=== PATIENT | male | born 1960 ===

== ENCOUNTER 2017-06-12 02:56 | Inpatient (IN) | payer OTHER ==
[~2017-06-12] VITALS: Ht 180.3 cm; Wt 99.8 kg
--- NOTE | ~2017-06-12 | WRIGHTHP ---
[place], [place] PATIENT HISTORY AND PHYSICAL EXAM NAME: NAYELI GATES UNIT #: [id number] ROOM: 309 DOCTOR: SANDRA DOUGLASS MD BIRTHDATE: [birth year] DOS: 06/13/2017 INITIAL PSYCHIATRIC EVALUATION CHIEF COMPLAINT: "I was gonna to kill myself or all those other people at that place, I can't stand it, I need to find another place." HISTORY OF PRESENT ILLNESS: This is a 56-year-old white male who was sent here from [facility] in the [facility]. The patient initially presented to the Emergency Room at [facility] and was sent here on an involuntary basis due to significant suicidal and homicidal ideation. The patient apparently has a lengthy history of schizoaffective disorder and has been having increased depression with mood swings and irritability. He made threats that he was going to find a way to kill himself or the people at [facility] if he did not get any help. He was sent here now to rule out organic factors, to stabilize on medication, to engage in individual and boothe milieu activity with the plan then to return to the least restrictive environment when psychiatrically stable. PAST MEDICAL HISTORY: Remarkable for previous psychiatric admission here in 2014 for similar psychotic break. MENTAL STATUS: Upon admission, the patient is alert and oriented x 3. Mood is depressed, anxious overtones. There is the presence of some grandiosity as well as the presence of delusions and some paranoia. He was not wanting to talk to me with the door open and would only talk to me in a whisper when people passed by. His memory seems to be intact. DIAGNOSIS: Schizoaffective disorder. PLAN: His ammonia level is slightly elevated. This could be because of the Depakote alone, so I will discontinue it. It has not been effective anyway. I will go ahead and augment his Zyprexa at this point with Vraylar, may look to utilize a different antipsychotic as well. We will discuss the case with Tandem Operator to determine if placement back to [facility] is warranted or alternative placement is needed. [place], [place] PATIENT HISTORY AND PHYSICAL EXAM NAME: NAYELI GATES UNIT #: [id number] ROOM: 309 DOCTOR: SANDRA DOUGLASS MD BIRTHDATE: [birth year] SANDRA DOUGLASS MD CM:HISPHYS:PATIENT HISTORY AND PHYSICAL EXAMINATION 1001 SANDRA DOUGLASS MD 06/13/17 0959 interface
--- NOTE | ~2017-06-12 | PR ---
[place], [place] PROGRESS NOTE NAME: NAYELI GATES UNIT #: [id number] ROOM: 312 DOCTOR: SANDRA DOUGLASS MD BIRTHDATE: [birth year] DOS: 06/20/2017 CHIEF COMPLAINT: "Oh, yeah, I will sign in if that is all I have to do." SUMMARY OF THE VISIT: The patient was interviewed on multiple occasions, first, but prior to the court hearing regarding further length of stay. I sat with him and discussed his options regarding signing in. He was somewhat fearful of what the court hearing was and when I explained to him that he had the option to sign in voluntarily if he wanted, he nodded in approval. He is much more calm and goal directed this morning and was able to carry on a reasonable conversation with me. Later, the patient did attend his court hearing with the restaurant hostess and the contract attorney present and clearly voiced a desire to sign in which he did. He at times did get derailed and was fragmented, but overall there has been a steady trend in improvement. Later in the morning, the patient did have a very demonstrative period of time where he was yelling at the top of his lungs about getting his medicine for his legs. He is somewhat preoccupied with his bilateral ankle swelling, which seems to be mostly dependent edema because he is pacing and on his feet so much. He did redirect after the nurses intervened. MENTAL STATUS: He is alert and oriented. Mood now is strongly trending towards euthymia and affect is much more appropriate. His conversation is more goal directed, but at times he does be real and becomes fragmented and at times he jumbled his words and is hard to understand, but there is a consistent trend toward improvement. There is some mild paranoia present, but he is able to redirect himself on this. Memory for the most part is intact. PLAN: At this point, I am going to strive to achieve monotherapy. I will lower the Zyprexa from 20 mg at bedtime, down to 15 with a plan to ultimately discontinue it. I will increase the Clozaril to 50 mg twice daily and 200 mg at bedtime. We will continue to engage in individual and boothe milieu activity with the ultimate plan to return to the least restrictive environment when psychiatrically stable. SANDRA DOUGLASS MD CM:YESENIA 1 [id number] SANDRA DOUGLASS MD 06/20/17 2318 interface
--- NOTE | ~2017-06-12 | PR ---
[place], [place] PROGRESS NOTE [id number] UN[facility] #: [id number] ROOM: 312 DOCTOR: CADE PENA BIRTHDATE: [birth year] DOS: 06/19/2017 CHIEF COMPLAINT: The patient was sleeping soundly. SUMMARY OF VISIT: I assessed the patient in his room where he was sleeping soundly. Prior to entering the room, I did discuss his situation with the nurses. He was quite manic yesterday, pressured speech, pacing, yelling, etc. He did receive throughout the course of the last 24 hours 3 p.r.n. Valiums. Last night was the first night he slept successfully almost 6-7 hours consecutively. So at this point, I do not want him. My hope was that eventually the medications will kick in. He would have a couple of days where he just slept, and then kind of recalibrated. MENTAL STATUS: Again, limited. I did not even attempt to wake him since he is having some success with sleep at this time, most of my assessment is based on conversations with nursing and the boothe milieu staff. PLAN: Lets go ahead and keep the medications where they are. Use the p.r.n. Valium, which seems to be effective. Even if the next 24 hours again we kind of have to sedate him a little bit just to help him get some sleep, so he can kind of reset his clock. His Clozaril and trazodone were increased on Tuesday and again yesterday he received a total of 3 Valiums throughout 24-hour day and this seems to be working. We will continue as is and reassessed tomorrow. ZULEIMA PENA CNP CM:PNTRANS [id number] 0 CADE PENA 06/20/17139 interface
--- NOTE | ~2017-06-12 | PR ---
[place], [place] PROGRESS NOTE NAME: NAYELI GATES UNIT #: [id number] ROOM: 312 DOCTOR: SANDRA DOUGLASS MD BIRTHDATE: [birth year] DOS: 06/22/2017 CHIEF COMPLAINT: "I am doing better. I do not want to go back to that [facility]." SUMMARY OF THE VISIT: The patient was interviewed in the group therapy room. He engaged readily in conversation and was much more goal oriented in his speaking. He denied any type of medication side effects and does report that he is feeling better day by day and is sleeping better with the current medication regimen. MENTAL STATUS: He is alert and oriented. Mood does seem to be strongly trending towards euthymia. Affect is much more appropriate. He still has a tendency to derail in the middle of a conversation, but he self-redirects and ultimately comes back to the topic at hand. There are no overt auditory or visual hallucinations noted. No voiced delusions. There does not seem to be the prominent paranoia that was so prevalent earlier in his hospital stay. He convincingly denies any medication side effects. Memory for the most part is intact. PLAN: At this point, I will renew his p.r.n. Valium in case he requires any p.r.n. intervention. I will discontinue his Cogentin at this point since the Zyprexa has been discontinued as has the chlorpromazine. I will maintain him only on the Clozaril and trazodone at this point. I will consider lowering the trazodone if at all possible. We will look towards possible discharge soon, whether this is to [facility] or to an alternative placement remains unclear. We will discharge when psychiatrically stable. SANDRA DOUGLASS MD CM:PNTRANS 0 SANDRA DOUGLASS MD 06/22/1740 interface
--- NOTE | ~2017-06-12 | DS ---
[place], [place] DISCHARGE SUMMARY NAME: NAYELI GATES UNIT #: [id number] ROOM: 312 DOCTOR: SANDRA DOUGLASS MD BIRTHDATE: [birth year] DOS: 06/24/2017 CHIEF COMPLAINT: "I was going to kill myself or all those other people at that place, I can't stand it, I need to find another place to live." HISTORY OF PRESENT ILLNESS: This is a 56-year-old white male who was sent here from [facility], a custodial in the [facility]. He initially presented to the Emergency Room at [facility] and was sent here on an involuntary basis due to significant suicidal and homicidal ideation. The patient has a lengthy history of schizoaffective disorder and has been having increased mood swings, irritability and gross psychosis. He has made multiple threats to kill himself or the other residents at [facility]. He has not been sleeping well. He has not been attending to his ADLs and he has been very volatile and agitated. He was admitted now to rule out organic factors and to attempt to stabilize on medication. SUMMARY OF HOSPITAL COURSE: The patient was initially maintained on his Zyprexa dose; however, the Zyprexa dose was gradually increased to 40 mg a day. At first, he was augmented with Vraylar, but this did not seem to impact positively on his psychotic symptoms and he continued to be grossly psychotic and manic. He was very demonstrative and very paranoid. He was so disorganized that he would often talk in word salad. Eventually, the Vraylar was discontinued and Thorazine was utilized, but unsuccessfully. Despite having a fairly hefty dose of Thorazine along with a very hefty dose of the Zyprexa, he maintained gross psychosis and extreme mood lability with multiple threats to others. Eventually, the Thorazine was discontinued and he was started on Clozaril. With the Clozaril, he had an almost instantaneous improvement. After going approximately 3-4 days without any sleep, he actually slept 4 hours the first night on the Clozaril. Eventually trazodone was added at 150 mg at bedtime and then increased to 300 mg at bedtime. Clozaril was gradually increased to its maximum dose of 50 mg twice daily and 300 mg at bedtime and the Zyprexa was gradually discontinued at that point in time. With the combination of the trazodone and the Clozaril, his psychosis completely broke. He was able to engage in normal conversation and was able to interact well with other residents on the unit as well as staff. The suicidal and homicidal thoughts dissipated and he was voicing positive plans about returning to [facility] and even made an effort to look into alternative placements at [facility] as well as [facility]. He convincingly denied any medication side effects. He was not noticing any somnolence, sedation, extrapyramidal symptoms, or other side effects. He had improved sufficiently by 06/24 to return home at that time. MENTAL STATUS AT DISCHARGE: The patient was alert and oriented. Mood was significantly trending towards euthymia and affect was very appropriate. There was no martin or hypomania. There were no overt auditory or visual hallucinations. No delusions, no paranoia. Short, intermediate, and long-term memory were intact. FINAL DIAGNOSIS: Schizoaffective disorder. [place], [place] DISCHARGE SUMMARY NAME: NAYELI GATES UNIT #: [id number] ROOM: 312 DOCTOR: SANDRA DOUGLASS MD BIRTHDATE: [birth year] PLAN: All of his prescriptions have been E-scribed to [facility] in [place]. He will have followup in the [place] area. SANDRA DOUGLASS MD CM:NANCY [id number] SANDRA DOUGLASS MD 06/24/17 1232 interface
--- NOTE | ~2017-06-12 | CON ---
[place], [place] REPORT OF CONSULTATION [id number] UNIT #: [id number] ROOM: 312 DOCTOR: DARREN AREVALO DPM BIRTHDATE: [birth year] DOS: 06/17/2017 PODIATRY CONSULT. SUBJECTIVE: This patient is seen and is consulted for care of painful nails and the painful calluses on his left foot. He states that his feet are sore with ambulation and activity. PAST MEDICAL HISTORY: Positive for panic disorder, schizophrenia, tobacco abuse, hypertension, hyperlipidemia, obesity. ALLERGIES: BENADRYL and INVEGA. MEDICATIONS: Include trazodone, Clozaril, Zyprexa, Valium, Cogentin, Tenormin, Geodon, Ativan, Procardia. PHYSICAL EXAMINATION: Upon lower extremity physical examination, mild dependent edema is seen. Pedal pulses are mildly decreased. There is some decreased hair growth noted. Skin temperature is cool at the toes. Skin is thin and shiny. Sensation appears grossly intact and symmetrical bilaterally. No paresthesias are seen. Nails 1 through 5 bilaterally are thick, elongated, brittle and dystrophic with subungual debris present. There is thick hyperkeratotic tissue noted sub-second metatarsal head, left foot. Prominent first metatarsal head bunion deformity noted with contracted lesser digits. No ulcerations or open areas seen. No signs of infection. ASSESSMENT: and hammertoe deformity with callus, left foot; onychomycosis 1 through 5 bilaterally with pain. PLAN: Consult was performed. Manual debridement of mycotic nails in length and thickness to the level of the nail bed to reduce hazards such as infection. Discussed about wearing proper shoe gear and proper foot care. Follow up the patient in 9 weeks as an outpatient. Thank you for the opportunity to take part in care of this patient. DARREN AREVALO DPM CM:CONSTR:REPORT OF CONSULTATION 1154 06/17/17 1412 interface
--- NOTE | ~2017-06-12 | PR ---
[place], [place] PROGRESS NOTE NAME: NAYELI GATES UNIT #: [id number] ROOM: 312 DOCTOR: SANDRA DOUGLASS MD BIRTHDATE: [birth year] DOS: 06/15/2017 CHIEF COMPLAINT: "I am not olson." SUMMARY OF THE VISIT: The patient was interviewed as he was walking in the hallway. He again began verbalizing out of the blue comments that he was not olson. However, of note, he was not able to form an entire sentence without being derailed. He is very disjointed in his thinking and is very fragmented. He was exhibiting some significant bradykinesia; however, when I did have him hold his arms out in front of him, there was no significant tremor. MENTAL STATUS: He remains alert and oriented with gaps. Mood is very labile. He remains grossly psychotic and delusional and his thoughts are very disjointed and fragmented. PLAN: I will go ahead and increase his Cogentin from 0.5 mg twice daily to 1 mg twice daily in an effort to offset the extrapyramidal symptoms that we are seeing. I will go ahead and increase the Thorazine from 25 mg 3 times a day to 50 mg 4 times a day in an effort to break his psychosis. It is unclear whether it is the Thorazine or the high dose Zyprexa that is causing him to have the parkinsonian symptoms. I will monitor to see if the Cogentin can offset this. At this point in time; however, his gross psychosis and potential mood lability with the risk of physical aggression is such that I do believe that the risk of physical harm to others outweighs the potential for side effects for him. We will continue to engage him in individual and boothe milieu activity with the plan to return him to the least restrictive environment when stable. SANDRA DOUGLASS MD CM:PNTRANS [id number] SANDRA DOUGLASS MD 06/15/17 1032 interface
--- NOTE | ~2017-06-12 | PR ---
[place], [place] PROGRESS NOTE [id number] UNIT #: [id number] ROOM: 312 DOCTOR: CADE PENA BIRTHDATE: [birth year] DOS: 06/18/2017 CHIEF COMPLAINT: The patient was quite manic. SUMMARY OF VISIT: I attempted to interview and assess the patient in his room and in the dining room. Initially, the nurses brought to my attention that they had to give him a p.r.n. Valium because he was still manic, screaming, and cussing. He definitely was a handful. The patient was mumbling rapid pressured speech. MENTAL STATUS: He is alert and oriented, I think to self. He identified himself when I asked what was his name. I do not know if he knows where he is at, place, little things that I got out of him was that [place] is very congested. He does not like it there, very labile. PLAN: Dr. Jain increased his Clozaril yesterday, increased his trazodone as well, trying to help get him some sleep and break his martin. His CBC came back, his white blood count is 11.5. On the 06/13/2017, it was 11.2, on 06/16/2017, it was 8 and back up to 11.5. At this point in time, I want to see how the Valium affects him and see if it can calm him down a little bit. I do not want to make any significant changes only because the Clozaril and trazodone were increased so much yesterday. I will see how he does over the next 24 hours how much Valium he is needing p.r.n. and that will give me a better idea of where to go and what I can do to try and attempt to break the psychosis. ZULEIMA PENA CNP CM:PNTRANS 37 CADE PENA 06/18/171935 interface
--- NOTE | ~2017-06-12 | PR ---
[place], [place] PROGRESS NOTE NAME: NAYELI GATES UNIT #: [id number] ROOM: 312 DOCTOR: SANDRA DOUGLASS MD BIRTHDATE: [birth year] DOS: 06/17/2017 CHIEF COMPLAINT: "Yes you can come in and so can the student." SUMMARY OF THE VISIT: The patient was interviewed as he sat in the group therapy room eating his breakfast. He had completed 1 tray and requested a second. He did invite me in and also the female student that was with me. He was much calmer than he had been previously. There was no agitation or aggression. There was no being overly demonstrative and of note, he was able to actually carry on a conversation for the most part completing full sentences. Nurses did report that he was able to at least get 3 hours of uninterrupted sleep last night. This morning in addition to the above noted improvements, he is not exhibiting slurred speech or any type of sedation or somnolence. He denies any medication side effects. MENTAL STATUS: He is alert and oriented with some time gaps. Mood does seem to be trending towards euthymia. Affect is more appropriate. There are much less mood lability noted and much less delusional system present. Memory for the most part is intact. PLAN: I will increase his Clozaril to 50 mg twice daily and 100 mg at bedtime. If the improvement continues with the Clozaril, I will consider tapering and discontinuing the Zyprexa, so we can utilize monotherapy. I will increase trazodone from 150 mg at bedtime to 300 mg at bedtime to further aid sleep attempting to have him sleep 6-8 hours to see if this will help further break the martin. I will recheck a CBC with diff on 06/18/2017 and 06/21/2017 to make certain that he is tolerating the Clozaril therapy well. We will attempt to engage in individual and boothe milieu activity with the plan to return to the least restrictive environment when psychiatrically stable. SANDRA DOUGLASS MD CM:PNTRANS [id number] SANDRA DOUGLASS MD 06/17/17 0959 interface
--- NOTE | ~2017-06-12 | CON ---
[place], [place] REPORT OF CONSULTATION NAME: NAYELI GATES UNIT #: [id number] ROOM: 312 DOCTOR: RUDI SHNIE ED.D (GILDARDO) BIRTHDATE: [birth year] DOS: 06/15/2017 HISTORY OF PRESENT ILLNESS: A 56-year-old male referred by Dr. Jain for competency evaluation. At the present time, this patient is on the [facility] Unit here at [facility]. He states he is and his is here in the facility with him, which is obviously not correct. His psychiatric history is pertinent for schizoaffective disorder. He is presently on Procardia, Cogentin, Thorazine, atenolol. He had been residing at [facility] where he threatened to kill himself and other people, who are residents. This patient was awake, alert and oriented only to person. He had no idea where he was. He had no idea what the date was and actually told me he was 82 years old. Then, he indicated that he was born in 1979, all of which are incorrect. He was actively hallucinating throughout the interview. He had a significant amount of verbalized delusional thoughts also. It is clear that this patient is not competent to make informed healthcare decisions at this time. He is severely delusional and hallucinating and is unable to make any type of decisions, whatsoever. I did complete guardianship papers for this patient, although he may have a family member who has a power of banking attorney. I suggested that licensed master social worker pursue those avenues before pursuing guardianship. DIAGNOSIS: Schizoaffective disorder. RECOMMENDATIONS: In my opinion, this patient is not competent to make informed healthcare decisions. Thank you very much for this consult. RUDI SHINE ED.D CM:CONSTR:REPORT OF CONSULTATION 1411 06/15/17 2302 interface SANDRA JAIN MD
--- NOTE | ~2017-06-12 | PR ---
[place], [place] PROGRESS NOTE NAME: NAYELI GATES UNIT #: [id number] ROOM: 312 DOCTOR: SANDRA DOUGLASS MD BIRTHDATE: [birth year] DOS: 06/16/2017 CHIEF COMPLAINT: The patient rambled almost nonsensically. SUMMARY OF THE VISIT: The patient was attempted to be interviewed as he stood in the hallway. He had 1 sock on and 1 sock off. He previously was at the end of the bradford. He had ripped his shirt off and was beating it on the ground, yelling at the ceiling and out the window. Nurses report, he has been very volatile and has yet to sleep again for the second or third night in a row. During my interview, he basically presented with word salad and made absolutely no sense other than the state that his foot hurt and he requested a roll edge machine operator. Beyond that, he did not make sense. MENTAL STATUS: He is alert and oriented to self, place, but not necessarily time. Mood is labile. Affect inappropriate. He is very flighty and tangential, disjointed in his thinking overall, as mentioned previously word salad like. PLAN: I will go ahead and discontinue his Thorazine and lower his Zyprexa back down to just 20 mg at bedtime because it is currently ineffective. I will augment with Clozaril 25 mg b.i.d. and 50 mg at bedtime. Ultimately, if the Clozaril works, I will discontinue the Zyprexa. I will also add trazodone 150 mg at bedtime in an effort to get him sleeping to try to break the martin. We will engage in individual and boothe milieu activity, returning to [facility] when stable. SANDRA DOUGLASS MD CM:PNTRANS [id number] SANDRA DOUGLASS MD 06/17/17 0434 interface
--- NOTE | ~2017-06-12 | PR ---
[place], [place] PROGRESS NOTE NAME: NAYELI GATES UNIT #: [id number] ROOM: 312 DOCTOR: SANDRA DOUGLASS MD BIRTHDATE: [birth year] DOS: 06/23/2017 INTERVAL NOTE CHIEF COMPLAINT: "Yeah, I am ready to go soon. I feel better." SUMMARY OF THE VISIT: The patient was interviewed in the group therapy room. He engaged readily in goal-directed conversation. He was much more conversant and fluid. He did not exhibit mood lability or paranoia and denied any side effects from the medications themselves. He is actively involved in his discharge planning and is hopeful to get out of his current usp into another usp or preferably into [facility] housing. MENTAL STATUS: He is alert and oriented. Mood does seem to be strongly trending towards euthymia. Affect is more appropriate. There are no symptoms of martin or hypomania. There are no overt auditory or visual hallucinations, delusions or paranoia. Memory is intact. PLAN: I will maintain his current psychotropic regimen, continue to engage in individual and boothe milieu activity with the plan to discharge then when psychiatrically stable. SANDRA DOUGLASS MD CM:PNTRANS [id number] SANDRA DOUGLASS MD 06/24/17 0433 interface
--- NOTE | ~2017-06-12 | PR ---
[place], [place] PROGRESS NOTE NAME: NAYELI GATES UNIT #: [id number] ROOM: 312 DOCTOR: SANDRA DOUGLASS MD BIRTHDATE: [birth year] DOS: 06/21/2017 CHIEF COMPLAINT: "The nurses are not paying enough attention to me. SUMMARY OF THE VISIT: The patient was interviewed in the group therapy room. He engaged readily in conversation and again was much more goal oriented in his thinking than he was upon admission. He still gets fragmented at times and disjointed, but overall he self redirects. He is less labile and less overly demonstrative although he still has periods of this type of behavior. He does seem to be tolerating the current medication regimen well. At times, he does have a little bit of a thick tongue and slurs his words a little bit. He denies side effects, however. MENTAL STATUS: He is alert and oriented with some time gaps. Mood does seem to be strongly trending towards euthymia and affect is much more appropriate. There are no symptoms of martin or hypomania and his psychotic symptoms seem to be coming under control. Memory for the most part is intact. PLAN: At this point in time, I will increase his Clozaril further to 50 mg twice a day and 300 mg at bedtime and totally discontinue the Zyprexa. I will monitor for risk, benefits, monitor that he continues to sleep well at night. If he is sleeping well at night with this combination, I will start pulling back on the trazodone next and see if I can totally eliminate it leaving him on the Clozaril alone to control his mood and psychosis. We will engage in individual and boothe milieu activity with the plan to discharge to the least restrictive environment when psychiatrically stable. SANDRA DOUGLASS MD CM:PNTRANS [id number] SANDRA DOUGLASS MD 06/21/17 1126 interface
[~2017-06-12 02:56] MED LIST: ASPIR 8181 MG PO; ASPIR LOW81 MG PO; ATENOLOL25 MG PO; BRIN20TA PO; DIVALPROEX SOD500 M1 PO; Depakote ER500 MG PO; GEMFIBROZIL600 MG PO; INVEGA6 MG PO; LEADER NATUR1000 MCG PO; LISINOPRIL10 M1 PO; OLANZAPINE20 M2 PO; REXULTI2 MG PO; RISPERIDONE2 M2 PO; SODIUM CHLORIDE1 GM PO; VITAMIN D50000 I3 PO
[2017-06-12] MEDS ORDERED: COGENTIN0.5 MG PO (03:03)
[2017-06-12] MEDS ORDERED: KLONOPIN0.5 MG PO (03:04)
[2017-06-12] MEDS ORDERED: DEPAKOTE DR500 MG PO ×2 (03:06→03:08)
[2017-06-12] MEDS ORDERED: ZYPREXA15 M1 PO (03:09)
--- NOTE | 2017-06-12 18:54 | NUR ---
NAYELI GATES Edinson a 56 year old M admitted via stretcher from the ADMITTING as a emergency 72 hr. hold admission. Arrived on unit at 1854. ALLERGIES: INVEGA AND BENDRYL. Vital signs are:97.1, 94, 20, 152/100, 100% RA . The client signed the following forms with stated understanding: Authorization For The Release of Medical Information, Clothing List, Consent to Voluntary Admission and Hospitalization, Consent and Release Forms/Receipt of Rights, Acknowledgement of Advance Directive Information, Behavioral Health Consent Form, and Informed Consent of Medications. Admitted under the services of Dr. RAFAT HODGE,[facility]. A search was conducted and hazardous articles were removed. Client was oriented to the unit. LEYDI COREY
--- NOTE | 2017-06-12 19:35 | NUR ---
DR GIPSON NOTIFIED ON NEW ADMISSION, MEDICATIONS AND DX LIST FOR REVIEW. PATIENT WILL BE UNDER THE CARE OF DR. CARDOZA. ALSO NOTIFIED OF MANUAL BP 152/100.
[2017-06-12 20:30] VITALS: BP 143/98
[2017-06-12 21:00] VITALS: BP 143/98
--- NOTE | 2017-06-12 23:00 | NUR ---
MOOD IS LABILE. PARANOID & GRANDIOSE THROUGHOUT ASSESSMENT. NOTED TO HAVE INCREASED ANXIETY & BRIEF AGITATION. STATED THAT THE STAFF AT THE [facility] ARE CRAZY & LIARS & HE IS NOT GOING BACK. STATED THAT A BLACK MAN DID HIS CHORE OF CLEANING THE FLOOR & HE IS UPSET ABOUT THAT. LIMITED & GUARDED WITH INFORMATION. PT DID GET UP IN THE MIDDLE OF THE ASSESSMENT & WALKED OUT STATING THAT THERE ARE TOO MANY QUESTIONS & HE WAS DONE WITH IT. ATE A DINNER LUNCH BOX & HS SNACK. DENIES SUICIDAL & HOMOCIDAL FEELINGS SINCE HE IS HERE AT THIS FACILITY. STATED HE ONLY SAID THAT SO HE COULD GET THE HELL OUT OF THERE. BP INITAILLY ELEVATED & WAS 143/98. PT WAS COMPLIANT TAKING HS BP MEDICATION & LATER REFUSED TO LET STAFF RETAKE IT. PT IS ALERT & ORIENTED X 3 BUT HAS REQUIRED SOME REDIRECTION. AMBULATES RUIZ INDEPENDENTLY & WAS PLACED ON ELOPEMENT PRECAUTIONS. PT HAS STATED THAT HE IS GETTING OUT OF THIS PLACE TOO. PT WAS IN HIS ROOM TALKING OUTLOUD TO HIMSELF & WAS GETTING INCREASINGLY AGITATED. WHEN STAFF TRIED VERBAL INTERVENTION, HE BECAME INCREASING AGITATED & ACCUSED RN OF ASKING HIM TO HIM. CURSING & CALLING STAFF NAMES & POSTURED AT STAFF WITH CLENCHED FISTS. MEDICATED @ 2130 WITH GEODON 10 MG IM. GEODON HAS BEEN EFFECTIVE & PT IS PRESENTLY SLEEPING IN HIS ROOM QUIETLY AT THIS TIME.
--- NOTE | 2017-06-13 00:34 | NUR ---
24 HR chart check completed.
--- NOTE | 2017-06-13 02:11 | NUR ---
PT AWAKE AT THIS TIME. VERY DEMANDING & GETS EASILY AGITATED WHEN DEMANDS ARE NOT IMMEDIATELY MET.SPEECH IS PRESSURED, CIRCUMSTANTIAL & VULGAR. CALLED RN A "DAM PUSS".DELUSIONAL STATEMENTS REGARDING NOT GETTING TO A STAFF MEMBER. PARANOID STATEMENTS VOICED WELL. WANTED A JUICE BUT WAS GIVEN WATER & WAS INFORMED THAT HE IS SCHEDULED FOR AM LABS.
--- NOTE | 2017-06-13 06:07 | NUR ---
PT RETURNED TO SLEEP @ 5912
--- NOTE | 2017-06-13 06:39 | NUR ---
URINE OBTAINED & SENT TO LAB
[2017-06-13 06:40] LABS: HEMATOCRIT 41.8 % (42.0-52.0); MEAN CELL VOLUME 93.9 fl (80.0-94.0); MEAN CORPUSCULAR HGB 33.7 pg (27.0-31.0); MEAN CORPUSCULAR HGB CONC 35.9 g/dl (33.0-37.0); PLATELET COUNT AUTOMATED 230 10*3/uL (130-400); RED BLOOD COUNT 4.45 10*6/uL (4.50-5.90); RED CELL DISTRI WIDTH 12.1 % (0-14.5); WHITE BLOOD COUNT 11.2 10*3/uL (4.8-10.8)
[2017-06-13 07:14] LABS: ALBUMIN 3.8 gm/dl (3.1-4.5); ALKALINE PHOSPHATASE 40 U/L (45-117); BUN 11 mg/dl (7-24); CHLORIDE 103 mmol/L (98-107); CHOLESTEROL 212 mg/dL (<200); CREATININE 0.75 mg/dL (0.70-1.30); HDL CHOLESTEROL 58 mg/dl (40-60); LDL CHOLESTEROL 135 mg/dL (9-159); POTASSIUM 4.4 mmol/L (3.5-5.1); SGOT/AST 19 IU/L (3-35); SGPT/ALT 27 U/L (12-78); SODIUM 135 mmol/L (136-145); TOTAL PROTEIN 7.5 gm/dL (6.4-8.2); TRIGLYCERIDES 94 mg/dl (<150); VALPROIC ACID (DEPAKENE) 33.9 ug/ml (50-100); VLDL CHOLESTEROL 19 mg/dL (6-40)
[2017-06-13 07:20] LABS: BILIRUBIN NEGATIVE (NEGATIVE); BLOOD TRACE-INTACT (NEGATIVE); CLARITY CLEAR (CLEAR); COLOR YELLOW (YELLOW); GLUCOSE NEGATIVE (NEGATIVE); KETONE NEGATIVE (NEGATIVE); LEUKO ESTERASE NEGATIVE (NEGATIVE); NITRITE NEGATIVE (NEGATIVE); PH 7.5 (5.0-9.0); UROBILINOGEN 0.2 E.U./dl (0.2-1.0)
[2017-06-13 07:48] VITALS: BP 120/83
[2017-06-13 08:14] LABS: ATYPICAL LYMPHS 2 % (0-0); PLATELET SUFFICIENCY NORMAL (NORMAL); TOTAL CELLS COUNTED 100 #CELLS
[2017-06-13 09:12] LABS: VITAMIN D, 25-HYDROXY 35.1 ng/mL (30-100)
--- NOTE | 2017-06-13 12:39 | NUR ---
Exercise/Letter To Me Patient was in attendence for group as well as participated. Patient maintained safe behaviors and voiced no suicidal ideations throughout group.As group ended Patient antagonized another patient by saying that patient "cut him off." Other patient argued back that he did not which then caused both patients to exchange words. This staff member interceded and defused the situation. Patients both stop with the other patient apologizing. AT informed nurse of occurence
--- NOTE | 2017-06-13 13:00 | NUR ---
DR TYLER UP TO SEE PATIENTS NOTIFIED OF PT LABS
--- NOTE | 2017-06-13 15:32 | NUR ---
[facility] Patient did attend group as well as participated. Patient neede redirected a few times, Patient did interupt patients and myself several times as well as tried to talk over everyone. Patient at those times was very calmly asked to wait till he had a turn to speak and not to interupt or talk over others. Patient did maintain safe behaviors and voiced no suicidal ideations during group
--- NOTE | 2017-06-13 15:52 | NUR ---
TREATMENT TEAM WAS HELD WITHT HE FOLLOWING: DR. DOUGLASS, RNs, SW, ATs. NEW PT. NO DISCHARGE DATE.
--- NOTE | 2017-06-13 15:57 | NUR ---
Physical therapy evaluation completed. No further PT recommended at this time. Pateint is ambulating seemingly safely amongst the U without assistive devices. Patient performs transfers with supervision. Patient was difficult to keep on track with PT evaluation. Patient was starting to become increasingly aggitated as he talke about someone at a bank that owed him money. Patient calmed as his thought process was redirected walking past the nurses station and wanted to make a phone call. Patient walked himself back into the activities room upon this clinician's departure. Low complexity PT evaluation completed. Thank you for this referral, Cherie Farooq, PT
--- NOTE | 2017-06-13 18:09 | NUR ---
PT IS ALERT TO SLEF, HAVING VISUAL HALLUCINATIONS, TANGENTIAL CONVERSATIONS, GOING GROM ONE POINT TO ANOTHER, NOT MAKING ANY SENSE. DENIES SI/HI, PT IS DEMANDING, INPAITIENT, LABILE, EASILY AG IATED. BARTOLOME, COMPLIANT
[2017-06-13 20:23] VITALS: BP 132/74
--- NOTE | 2017-06-13 21:28 | NUR ---
24 HR chart check completed.
--- NOTE | 2017-06-14 05:45 | NUR ---
PT HAS BEEN OBSERVED ON Q 15 MIN CHECKS & HAS SLEPT QUIETLY THROUGHOUT THE SHIFT PAST 2300.
[2017-06-14 08:30] VITALS: BP 140/80
--- NOTE | 2017-06-14 09:01 | NUR ---
TREATMENT TEAM WAS HELD WITH THE FOLLOWING: DR. DOUGLASS, RESIDENT, MEDICAL STUDENT, RNs, AT, SWs. DR. DOUGLASS MAKING MED CHANGES. DR. DOUGLASS STATED PT CAN SIGN IN. DR DOUGLASS UNDERSTANDS TRHAT PT DOES NOT WANT TO RETURN TO [facility]. SW WILL TALK WITH FAMILY AND FACILITY.
--- NOTE | 2017-06-14 11:36 | NUR ---
Exercise/Riddles & Games Patient did attend group as well as participated. During group patient did maintain safe behaviors and reported no susicidal ideations. During group patient interupts,tries to talk over everyone, laughs loudly and uncontroled. Patient was redirected numerous times,asked to please not interupt while people are speaking, or to not talk over them,to also please calm down and listen to other people when they are speaking. Patient was easily redirected for those situations. At one point patient started to become upset That i was "favoring" another patient over him and letting that patient have his turn.Spoke calmly to patient and explained he would need to leave if he did not calm down. Patient redirected and we continued with group
--- NOTE | 2017-06-14 15:07 | NUR ---
Reminiscing and Puzzles Patient did attend group in the begining. When patient was asked what puzzle he would like to put together,Patient stated " I dont want to put together a puzzle. I want to get out of here." Then patient got up and left the room
--- NOTE | 2017-06-14 16:07 | NUR ---
[facility] asked Nurse Kathryn if pt. signed in per Dr. mata. Kathryn, the Nurse stats that pt. did not sign in and he is still "psychotic", which is the [facility] opinion also. [facility] texted Dr. mata and asked if Kathryn could put in competency consult for Dr. Mcleod and Dr. Mata gave a "thumbs up". [facility] spoke with Nurse Trina Soriano Claudia, and Nurse Peralta is putting in a consult at this time. pt. is pink slipped and a decision will need to be made in regards to whether or not pt. needs "emergency guardianship" or if a "civil committment" will need to be filed.
--- NOTE | 2017-06-14 17:33 | NUR ---
Some mood lability is present today with Giuseppe alternating between periods of depressed mood with irritability to periods of euthymic mood with loud laughter. He also exhibits overt s/s of experiencing internal stimuli (auditory in nature), as well. On 1:1 interactions with staff he responds with irrelevant statements and has also expressed some paranoid ideas regarding peers, staff and this facility. Not receptive to reality orientation @ this time. Dr. Jain in to see him and order was received for a one time dose of Zyprexa Zydis 10 mg and this was administered @ approximately 0830. Giuseppe's understanding of his current situation is markedly impaired @ this time due to his mental status. @ intervals he is noted to exhibit restlessness and paces in hallway while kicking @ the air. Medicated with ativan 1 mg po @ 1425. Ativan is moderately effective in calming him. His appetite is noted to be good for meals. He has been compliant with medications throughout the day. @ this time Giuseppe is unable to sign in voluntarily as he is unable to comprehend the voluntary admission process when this is reviewed. Dr. David Mcleod was consulted for competency evaluation this evening. Refer to [facility] flowsheet for specific monitoring.
[2017-06-14 20:00] VITALS: BP 140/82
--- NOTE | 2017-06-14 20:10 | NUR ---
PATIENT AMBULATING IN HALLWAY WITH SLOW, SHUFFLED GAIT. PATIENT WITH GARBLED, INCOHERENT SPEECH AT TIMES. PATIENT LOOKING FOR A BLACK MAN WHO HE THOUGHT WAS A SLAVE AND WAS ASKING THIS NURSE IF I COULD FIND HIM. THIS NURSE REDIRECTED PATIENT TO TIME AND PLACE. PATIENT AMBULATED TO ROOM
--- NOTE | 2017-06-14 20:50 | NUR ---
PATIENT APPROACHED NURSING WHILE PASSING MEDICAITONS IN HALLWAY. PATIENT UPSET AND YELLING AT NURSE TO STICK HIM WITH A NEEDLE. PATIENT STATED THAT HIS MOTHER WAS DIABETIC AND HE DID NOT WANT TO . THIS NURSE EXPLAINED TO PATIENT THAT BLOOD SUGAR DID NOT NEED CHECKED AND REDIRECTED PATIENT TO ROOM
--- NOTE | 2017-06-14 22:00 | NUR ---
PATIENT FOUND YELLING IN DINING AREA AT TELEVISION. PATIENT STATING HE JUST WANTED TO GO TO BED BUT COULD NOT. PATIENT AGREEABLE TO TAKING ATIVAN 1MG PO TO HELP CALM DOWN. MEDICATION WITH INEFFECTIVE RESULT. PATIENT CONTINUES TO AMBULATE IN HALLWAY WITH SLOW, SHUFFLED GAIT. PATIENT WITH YELLING OUTBURST AT TIMES THAT WAS INAPPROPRIATE WITH MOOD
--- NOTE | 2017-06-14 23:10 | NUR ---
PATIENT COMING OUT IN HALLWAY YELLING OUT ABOUT THE [place] VIRUS. PATIENT REDIRECTED BACK TO ROOM. PATIENT EUPHORIC AND PARANOID IN ROOM STATING IT IS ALL OVER THE NEWS AND THAT [employer] IS WATCHING. THIS NURSE REDIRECTED PATIENT TO TIME AND PLACE. PATIENT AGREEABLE AND LAYED DOWN IN BED.
--- NOTE | 2017-06-15 00:15 | NUR ---
PATIENT WITH MULTIPLE ATTEMPTS TO AMBULATE IN HALLWAY WITH SLOW, SHUFFLED GAIT. PATIENT CONTINUALLY COMING TO DOOR WAY WITH TRASH CAN AND REPOSITIONING OUTSIDE HIS DOOR. PATIENT WOULD HAVE OUTBURST WITH STATEMENTS AT TIMES WITH INCOHERENT THOUGHTS AND GARBLED SPEECH. UNABLE TO RECOGNIZE WHAT PATIENT WAS YELLING ABOUT. PATIENT ABLE TO REDIRECT TO ROOM
--- NOTE | 2017-06-15 01:44 | NUR ---
24 HR chart check completed.
--- NOTE | 2017-06-15 02:30 | NUR ---
PATIENT CAME OUT IN HALLWAY STANDING STILL AND NOT MOVING FOR PERIODS OF TIME. PATIENT ASKED THIS NURSE IF HE HAD ALLERGIES AND POINTED OUT HIS RED ARM BAND. PATIENT THEN STATED THAT HE SMOKED MARIJUANA AND TOOK LSD AND LAUGHED. PATIENT REDIRECTED TO TIME AND PLACE. PATIENT WENT BACK INTO ROOM
--- NOTE | 2017-06-15 04:00 | NUR ---
PATIENT CONTINUES TO AMBULATE IN HALLWAY. PATIENT OBSESSED WITH OULTET ON WALL BESIDE HIS ROOM IN HALLWAY. PATIENT KNEELING DOWN TALKING TO OULET. THIS NURSE APPROACHED PATIENT AND PATIENT ATTEMPTED TO COVER AUDITORY HALLUCINATIONS. THIS NURSE ASSISTED PATIENT BACK TO ROOM AND COULD HEAR PATIENT TALKING TO SELF WHEN DOOR WAS CLOSED. UNABLE TO HEAR AND FOLLOW CONVERSATION DUE TO FLIGHT OF IDEAS
--- NOTE | 2017-06-15 05:05 | NUR ---
PATIENT YELLING OUT IN HALLWAY ABOUT GETTING THE GUNS. PATIENT WALKING FROM WINDOW AND DOWN THE HALLWAY. PATIENT REDIRECTABLE TO ROOM. PATIENT HOLDING EAR IF TALKING ON TELEPHONE AND WITH AUDITORY HALLCINATATION WALKING TO ROOM. THIS NURSE SPOKE PATIENTS NAME IN ATTEMPT TO REDIRECT PATIENT AND PATIENT ATTEMPTED TO HIDE HALLUCINATION
--- NOTE | 2017-06-15 06:40 | NUR ---
PATIENT HAVING YELLING OUTBURST IN HALLWAY AND IN DINING AREA. PATIENT CURSING AT TIMES WITH INCOHERENT CONVERSATION AND ALSO EUPHORIC AT TIMES DURING OUTBURST. PATIENT REDIRECTED TO ROOM DUE TO PATIENTS DISRUPTIVE BEHAVIOR
[2017-06-15 08:07] VITALS: BP 137/83
--- NOTE | 2017-06-15 09:19 | NUR ---
TREATMENT TEAM WAS HELD WITH THE FOLLOWING: DR. Mclaughlin, RNs, AT, SW. ATIVAN INEFFECTIVE. INCREASED MEDS. FILE AFFADAVIT. DR. SHINE CONSULT FOR COMPOTENCY.
--- NOTE | 2017-06-15 11:03 | NUR ---
Exercise and remenissing group Patient attended group and participated appropriately with the exercises however racing thoughts and speech throughout remenissing group. Patient would laugh inappropriately and would walk in and out of group. Patient unable to be redirected towards group.
--- NOTE | 2017-06-15 11:16 | NUR ---
Patient seen this date for an Occupational Therapy screening. Giuseppe was observed independently wandering on the [facility] ranting and being verbally aggressive. He was disruptive and yelling out at times. He was occasionally minimally assisted in toileting today by the boothe mileu. At this time no OT is indicated as he needs 24 hr supervision and occasional minimal assist for max safety in ADLs. Recommend return to protective environment. Thank you for this referral. Indy Herrera OTR/l
--- NOTE | 2017-06-15 13:48 | NUR ---
NORBERTO VIDAL NOTIFIED OF AMMONIA LEVEL FROM 06/13.
--- NOTE | 2017-06-15 14:53 | NUR ---
Meaningful Me Patient did not actively attend or paticipate in group. Patient in and out of activity room many times. AC attempted to engage and redirect patient towards group without success.
--- NOTE | 2017-06-15 18:01 | NUR ---
DR. SHINE MET WITH PT AND DETERMINED THAT PT WAS NOT COMPOTENT.
--- NOTE | 2017-06-15 18:05 | NUR ---
SW COMPLETED AND FILED AFADAVIT WITH [facility] WITH GUARDIAN APPICATION.
--- NOTE | 2017-06-15 18:06 | NUR ---
SW RECEIVED LETTER OF DENTENTION FROM [facility]. COPY ON CHART.
--- NOTE | 2017-06-15 18:14 | NUR ---
PATIENT IS ALERT TO SELF WITH CONFUSION. RESPIRATIONS ARE EASY, NON-LABORED ON ROOM AIR. MOOD IS ANGRY/IRRATIBLE, LABILE AND LOUD. DENIES ANY HI/SI, HAVING PARANOID DELUSIONS WITH AUDITORY AND VISUAL HALLUCINATIONS. RESPONDING TO INTERNAL STIMULI CONSTNANTLY THROUGHOUT THE DAY. PACING IN THE HALLWAY, TALKING, YELLING AND LAUGHING AT UNSEEN OTHERS. REDIRECTED FREQUENTLY THORUGHTOUT THE DAILY AND 1:1 WHEN BECOMING LOUD AND DISRUPTIVE TO THE OTHER PATIENT IN GROUP AND IN LOUNGE AREA. PATIENT INTERACTIVE WITH STAFF. MEAL INTAKES ARE GOOD WITH ADEQUATE FLUIDS. 1 PERSON ASSIST WITH ACTIVITIES OF DAILY LIVING, CONTINENT OF BOWEL AND BLADDER. PATIENT AMBULATORY WITH SHUFFLING GAIT, MONITORING CLOSELY. MEDICATION COMPLIANT. Q 15 MINUTE SAFETY CHECKS. CONTINUE TO MONITOR FOR AGGRESSION AND REDIRECT WITH RAISING VOICE NEEDED TO PREVENT ANY ESCULATIONS OF BEHAVIORS.
--- NOTE | 2017-06-15 19:42 | NUR ---
PT GRABBED PEER AND BEGAN TO SCREAM AND SWING AT NURSING STAFF. UNABLE TO REDIRECT, VIVIDLY HALLUCINATING TALKING AND POINTING FINGERS AND SWINGING FISTS AT UNSEEN ORHTERS IN HALLWAY. PRN GEODON ADMINISTERED DUE TO PREVIOUS INEFFECTIVENESS OF ATIVAN ON PREVIOUS SHIFT.
[2017-06-15 20:00] VITALS: BP 122/71
--- NOTE | 2017-06-15 21:08 | NUR ---
PT CONITINUES TO PACE HALLS AND VIVIDLY HALLUCINATE BUT MUCH MORE EASILY REDIRECTED. CONSUMED HS SNACK IN QUIET ROOM. PRN JOSE ALBERTO EFFECTIVE.
--- NOTE | 2017-06-15 23:50 | NUR ---
24 HR chart check completed.
--- NOTE | 2017-06-16 03:49 | NUR ---
PT RAN HEAVY FOOTED FROM ROOM TO NURSES STATION, BEGAN YELLING LOTTERY NUMBERS, INAPPROPRIATE LAUGHTER STATING " I DONT WANT TO TALK TO HER I DONT WANT TO SEE HER" NONSENSICLE SPEECH, FLIGHT OF IDEAS. VERY DIFFICULT TO REDIRECT. UPON REDIRECTION TO ROOM PT HAD SCATTERED TOILET PAPER AND BED LINENS THROUGHOUT ROOM. PT ASSISTED IN PICKING UP ROOM AND RETUNRED TO BED. NURSING STAFF OUT SIDE OF PT ROOM. PT CONTINIUED WITH LAUGHTER OPENING AND SHUTTING ROOM DOOR. PT RETUNRED TO BED WITH CONTINUED STAFF PRESENCE IN RUIZ AT THIS TIME.
--- NOTE | 2017-06-16 04:40 | NUR ---
UPON 15 MIN CHECKS PT FOUND TO BE CRAWLING AROUND ON ALL FOURS YELLING "HE'S MY HONEY HE'S A FAGGOT". PT REMINED THAT SPEECH WAS INAPPROPRIATE 1-1 PROVIDED AND INEFFECTIVE. UNABLE TO PRESENT REALITY. RAN TO ALLWAY AND POUNDED ON EMERGENCY ROOM DOOR. PT REDIRECTED TO ROOM
--- NOTE | 2017-06-16 05:37 | NUR ---
PT SLEPT 1 HOUR DURING SHIFT. CONTINUE TO PRESENT REALITY AND REDIRECT PT NEEDED. MEDICATIONS ADMINISTERED ORDERED AND EDUCATION DISCUSSED WITH PT UNABLE TO COMPHREHEND EDUCATION AT THIS TIME DUE TO PSYCHOSIS AND VIVID HALLUCINATIONS. Q 15 MIN CHECKS FOR SAFETY MAINTAINED, ROOMS WELL LET AND FREE OF DEBRIS TO PREVENT FALLS. CONTINUE PLAN OF CARE, SEE FLOW SHEET FOR SPECIFIC MONITORING.
[2017-06-16 06:01] LABS: ALBUMIN 4.1 gm/dl (3.1-4.5); ALKALINE PHOSPHATASE 37 U/L (45-117); BUN 21 mg/dl (7-24); CHLORIDE 105 mmol/L (98-107); CREATININE 0.83 mg/dL (0.70-1.30); POTASSIUM 3.8 mmol/L (3.5-5.1); SGOT/AST 25 IU/L (3-35); SGPT/ALT 28 U/L (12-78); SODIUM 140 mmol/L (136-145); TOTAL PROTEIN 7.3 gm/dL (6.4-8.2)
[2017-06-16 06:08] LABS: BASO # 0.1 10*3/uL (0.0-0.1); BASO % 0.9 % (0.0-1.0); EOS # 0.2 10*3/uL (0.0-0.4); HEMATOCRIT 36.4 % (42.0-52.0); HEMOGLOBIN 12.7 g/dl (14.0-18.0); LYMPH # 2.2 10*3/uL (1.3-4.4); LYMPH % 27.2 % (27.0-41.0); MEAN CORPUSCULAR HGB 33.2 pg (27.0-31.0); MEAN CORPUSCULAR HGB CONC 34.9 g/dl (33.0-37.0); MEAN PLATELET VOLUME 9.3 fl (9.6-12.3); MONO # 1.4 10*3/uL (0.1-1.0); MONO % 17.6 % (3.0-9.0); NEUT # 4.2 10*3/uL (2.3-7.9); NEUT % 52.1 % (47.0-73.0); PLATELET COUNT AUTOMATED 207 10*3/uL (130-400); RED BLOOD COUNT 3.83 10*6/uL (4.50-5.90); RED CELL DISTRI WIDTH 12.2 % (0-14.5)
--- NOTE | 2017-06-16 07:52 | NUR ---
VO RECEIVED FROM , WITNESSED BY 2 OTHER RN'S.
--- NOTE | 2017-06-16 08:00 | NUR ---
PT REFUSED VITALS THIS AM.
--- NOTE | 2017-06-16 08:20 | NUR ---
TREATMETN TEAM WAS HELD WITH THE FOLLOWING: DR. DOUGLASS RETAIL ASSISTANT MANAGER, MEDICAL STUDENT, RNs, SWs, AT. [facility]. DR. DOUGLASS ADJUSTING MEDS.
--- NOTE | 2017-06-16 08:35 | NUR ---
PT ASSESSED BY DR. DOUGLASS THIS AM. PT CONTINUES TO EXHIBIT EXTREME MOOD LABILITY, YELLING, CURSING, BANGING ON TABLES AND CHAIRS, SPEECH IS GARBLED AT TIMES, NONSENSICAL, FLIGHT OF IDEAS AND DELUSIONAL THOUGHTS NOTED. PT YELLING OUT WINDOW AT UNSEEN OTHERS. UNABLE TO REDIRECT. VALIUM 10MG IM GIVEN TO RIGHT DELTOID AT [address] DOUGLASS. PT ACCEPTED INJECTION WITH STATED UNDERSTANDING OF INTENDED USAGE OF MEDICATION. PT TOLERATED INJECTION WELL. NO DISTRESS NOTED. PT ASSISTED TO LAY DOWN IN BED BY RN. Q15 MIN SAFETY CHECKS MAINTAINED.
--- NOTE | 2017-06-16 09:10 | NUR ---
[facility] CRISTY RETURNED CALL. SUPPLEMENTAL NURSE ROSALINDA INFORMED CRISTY THAT HEARING NEEDED TO BE HELD WITHIN 5 DAYS OF PICK SLIP. JUDGE TELLEZ WOULD LIKE AFFADAVITS FILED WITHIN 24 HOURS OF ADMISSION. CRISTY WILL INFORM DR. DOUGLASS OF SUPPLEMENTAL NURSE'S REQUEST. SUPPLEMENTAL NURSE WILL DECIDE TO WHETHER TO ORDER DISCHARGE OR PROCEED WITH A HEARING.
--- NOTE | 2017-06-16 09:13 | NUR ---
PT LAID DOWN FOR APPROXIMATELY 30 MINUTES, PT THEN OUT OF BED, AT WINDOW LOOKING OUTSIDE YELLING AT UNSEEN OTHERS CONTINUING TO EXHIBIT PSYCHOTIC BEHAVIOR WITH CONTINUED MOOD LABILITY AND INAPPROPRIATE LAUGHTER. Q15 MIN MONITORING CONTINUES.
[2017-06-16 09:25] VITALS: BP 131/70
--- NOTE | 2017-06-16 09:25 | NUR ---
PT ALLOWED VITALS TO BE TAKEN AT THIS TIME. PT ATTEMPTED TO GRAB THIS NURSE'S NAME TAG AND ARM, REDIRECTED, PT CONTINUES TO WALK UP AND DOWN HALLWAY, MOOD LABILE, INAPPROPRIATE LAUGHTER, VOICING DELUSIONS AND FLIGHT OF IDEAS.
--- NOTE | 2017-06-16 09:50 | NUR ---
NORBERTO VIDAL CNP OF HOSPITALIST [facility] HERE TO SEE PT AT THIS TIME, UPDATE GIVEN ON CURRENT BEHAVIORS AND MEDICATION CHANGES MADE TODAY BY DR. DOUGLASS.
--- NOTE | 2017-06-16 10:18 | NUR ---
Carey.O. RECIEVED FROM DR. DOUGLASS, STATES TO GIVE AM DOSE OF CLOZARIL TODAY. WITNESSED BY 2ND RN EVELYN. MESSAGE SENT TO PHARMACY.
--- NOTE | 2017-06-16 10:46 | NUR ---
CLOZARIL GIVEN ORDERED AND DIRECTED BY DR. DOUGLASS. PT TOOK MED WITHOUT DIFFICULTY, HOWEVER; INAPPROPRIATE LAUGHTER AND MOOD LABILITY CONTINUES, PT ATTEMPTED TO CORNER THIS NURSE, GRABBED THIS NURSE BY THE ARM AND ATTMEPTED TO TOUCH THIS NURSE INAPPROPRIATELY WHILE STATING "COME ON, IT WON'T HURT." THIS NURSE WAS ABLE TO REDIRECT PT INDEPEDENTLY. PT IN ROOM AT THIS TIME. Q15 MIN MONITORING CONTINUES.
--- NOTE | 2017-06-16 11:04 | NUR ---
SPOKE TO BAYLEE AT DR. ROTHMAN'S OFFICE TO NOTIFY OF CONSULT, BAYLEE STATES DR. ROTHMAN IS ON HIS WAY HERE TO SEE A PT AND TO NOTIFY HIM OF CONSULT WHEN HE ARRIVES ON THE UNIT.
--- NOTE | 2017-06-16 11:30 | NUR ---
Conversation and goal Patient did not attend group. PT roaming halls and did wander into group at one point yelling. PT insissted this AC look at something in the paper. After looking PT was redirected and taken to his room by a milieu to try and calm him
--- NOTE | 2017-06-16 11:30 | NUR ---
[facility] WERE READY FOR WELLNESS PROGRAM COORDINATOR. HEARING SET FOR WEDNESDAY 06/20 AT 8AM.
--- NOTE | 2017-06-16 12:21 | NUR ---
PT CONTINUES TO EXHIBIT PSYCHOTIC BEHAVIOR WITH LABILE MOOD. DIFFICULT TO ASSESS ORIENTATION D/T PT'S CURRENT CONDITION. PT CONTINUES TO BE RESPONDING TO INTERNAL STIMULI, YELLING OUT THE WINDOW, YELLING AT THE TV, DIFFICULT TO REDIRECT. NO VOICED SI/HI. PT WANDERING HALLWAY, YELLING, REDIRECTED TO QUIET AREA FREQUENTLY BY STAFF, THIS IS EFFECTIVE ONLY FOR A SHORT PERIOD OF TIME, APPROX 5-10 MINUTES BEFORE PT IS BACK IN THE HALLWAY YELLING AGAIN. SPEECH IS LOUD WITH FLIGHT OF IDEAS AND FRAGMENTED THOUGHTS NOTED. PT REDIRECTED TO QUIET ROOM TO EAT LUNCH, PT ATE APPROX 75% OF LUNCH, MINIMAL FLUID INTAKE, HOWEVER; PT TAKES PO FLUIDS WITHOUT DIFFICULTY WHEN PROVIDED BY STAFF. Q15 MIN MONITORING CONTINUES.
--- NOTE | 2017-06-16 12:49 | NUR ---
CALL PLACED TO DR. DOUGLASS PER HIS REQUEST TO UPDATE ON PT'S BEHAVIOR, PT CONTINUES TO EXHIBIT PSYCHOTIC BEHAVIOR, RESPONDING TO INTERNAL STIMULI, YELLING, INAPPROPRIATE LAUGHTER AND MOST RECENTLY HAS BEEN GESTURING THOUGH HE IS ATTEMPTING TO CHOP PEOPLE/THINGS WITH AN AXE. MADE AWARE PT WAS CALM FOR APPROX 30 MIN AFTER ADMINISTRATION OF IM VALIUM 10MG THIS AM. DR. DOUGLASS STATES TO GIVE TRAZADONE 150MG PO NOW AND STATES TO ADD VALIUM 10MG PO/IM Q4H PRN ANXIETY/AGITATION TO EMAR AT THIS TIME. ORDERS READ BACK, REPEATED AND VERIFIED. WITNESSED BY 2ND RN EVELYN.
--- NOTE | 2017-06-16 13:10 | NUR ---
TRAZODONE 150MG PO GIVEN AT THIS TIME ORDERED BY DR. DOUGLASS. WILL MONITOR FOR EFFECTIVENESS.
--- NOTE | 2017-06-16 14:20 | NUR ---
BEHAVIOR REMAINS UNCHANGED FOLLOWING ADMINISTRATION OF TRAZADONE.
--- NOTE | 2017-06-16 15:10 | NUR ---
CRISTY PICKED UP COURT PAPERS AT 1:20PM FROM [facility] [address].
--- NOTE | 2017-06-16 15:11 | NUR ---
SW SERVED PAPERS TO PT INFORMING PT COURT HEARING ON WEDNESDAY 06/[address] OF COURT PAPRES ON ON CHART.
--- NOTE | 2017-06-16 15:57 | NUR ---
SAME BEHAVIORS CONTINUE. PT ROAMING HALLS YELLING LOUDLY, DISROBING, ENTERING OTHER PT'S ROOMS, YELLING AT UNSEEN OTHERS WITH VULGAR LANGUAGE. UNABLE TO REDIRECT. PT WAS GIVEN PRN VALIUM 10MG PO AT THIS TIME. Q15 MIN MONITORING CONTINUES.
--- NOTE | 2017-06-16 18:14 | NUR ---
SHIFT CHART CHECK COMPLETED.
[2017-06-16 19:46] VITALS: BP 127/82
--- NOTE | 2017-06-17 02:44 | NUR ---
24HR CHART CHECK COMPLETE
--- NOTE | 2017-06-17 03:49 | NUR ---
PT ALERT AND ORIENTED TO NAME ONLY. EXPERIENCING FLIGHT OF IDEAS, WORD SALAD, NONSENSICAL SPEECH. MOOD IS NOTABLY LABILE WITH FREQUENT VERBAL DE-ESCALATION NECESSARY. PT DIFFICULT TO REDIRECT. LAUGHING INAPPROPRIATELY, UNABLE TO SOCIALIZE WITH PEERS. PT ATTENDING TO INTERNAL STIMULI. MEDICATION COMPLIANT WITHOUT DIFFICULTY. CLOSE OBSERVATION HAS BEEN MAINTAINED IN ORDER TO PREVENT PT FROM HURTING OTHERS. FOUL LANGUAGE USED AT TIMES. PT BECAME INCREASINGLY AGITATED WHEN HE REQUESTED COFFEE AT 0220, THEN AGAIN AT 0300. PT UNABLE TO COMPREHEND UNIT RULES. LIMIT SETTING PROVIDED AND ATTEMPTED TO REORIENT TO REALITY. BOTH UNSUCCESSFUL. CONTINUE TO MONITOR FOR CHAMGES IN BEHAVIOR. REFER TO FLOWSHEET FOR ADDITIONAL INFO.
--- NOTE | 2017-06-17 06:35 | NUR ---
PT SLEPT >3HRS WITH FREQUENT INTERRUPTIONS
--- NOTE | 2017-06-17 08:22 | NUR ---
ORDERS CHANGED TO CLOZARIL GIVEN TO THIS NURSE VERBAL ORDER BY DR. DOUGLASS. READ BACK, REPEATED AND VERIFIED.
[2017-06-17 08:28] VITALS: BP 127/66
--- NOTE | 2017-06-17 09:50 | NUR ---
TREATMENT TEAM WAS HELD WITH THE FOLLOWING: DR. DOUGLASS, MEDICAL STUDENT, RNs, AT, SW. HEARING DATE FOR CUSTODIAL IS 06/20 AT 8AM. PENDING DISCHARGE FOREND OF NEXT WEEK. LABS SCHEDULED FOR TUESDAY.
--- NOTE | 2017-06-17 11:00 | NUR ---
NORBERTO VIDAL CNP OF HOSPITALIST GROUP ON UNIT TO SEE PT AT THIS TIME, UPDATE GIVEN.
--- NOTE | 2017-06-17 11:30 | NUR ---
Exercise/Reminiscing/Funny Things Patient was in and out of group,Rambuling, a few times. Patient was easily redirected for a short bit of time during each attempt. Patient did attempt to answer a question when it was directed to him. Patient did maintain safe behaviors and reported no suicidal ideations during the times he was in group
--- NOTE | 2017-06-17 11:30 | NUR ---
DR. AREVALO HERE TO SEE PT AT THIS TIME, NAILS TRIMMED AND REMOVED CORN FROM BOTTOM OF RIGHT FOOT.
--- NOTE | 2017-06-17 12:12 | NUR ---
PT IN [place], UPSET THAT OTHER PATIENTS WERE RECIEVING MEDICATION AND HE WASN'T. EDUCATION PROVIDED TO PT RE: MEDICATION REGIME. INEFFECTIVE. PT BECAME IRATE, SCREAMING AT THIS NURSE USING VULGAR LANGUAGE. PT VOICING PARANOID DELUSIONS. UNABLE TO CALM, PT SWINGING FISTS AND ATTEMPTING TO SPIT AT STAFF. PT WAS GIVEN PRN VALIUM 10MG PO AT THIS TIME FOR INCREASED ANXIETY/AGITATION, WILL MONITOR FOR EFFECTIVENESS.
--- NOTE | 2017-06-17 13:15 | NUR ---
VALIUM EFFECTIVE. PT IN CONTROL OF BEHAVIOR AT THIS TIME. REQUESTING A SHOT. EDUCATED HE WAS GIVEN PO MEDICATION. PT REQUESTED FLUIDS, GIVEN REQUESTED. PT THANKFUL.
--- NOTE | 2017-06-17 14:25 | NUR ---
CRISTY RECEIVED MESSAGE FROM DEPARTMENT OF SOCIOLOGY CHAIR THAT MAMIE GALE ([phone] EXT [phone]) NEEDED TO DO A PHONE INTERVIEW WITH PT. SW RETURNED RHIANNON AND LEFT VM. CRISTY FEELS THAT PT CAN NOT TALK ON PHONE AT THIS TIME DUE TO AN INCREASE IN BEHAVIORS AND THROWING THINGS ON THE FLOOR. CRISTY WILL SEE IF BEHAVIORS LESSEN ON TUESDAY AND HAVE PT CALL THEN. LEFT CONTACT INFORMATION FOR SHAHLA.
--- NOTE | 2017-06-17 14:42 | NUR ---
PT IS ALERT AND ORIENTED TO PERSON AND PLACE. UNABLE TO ASSESS MEMORY AT THIS TIME. RESPIRATIONS EASY ON ROOM AIR. MOOD REMAINS LABILE WITH INAPPROPRIATE AFFECT. PT CONTINUES TO EXHIBIT MANIC BEHAVIORS. SPEECH IS LOUD BUT COHERENT, ABLE TO MAKE NEEDS KNOWN. FOI AND WORD SALAD CONTINUE AT TIMES, HOWEVER, PT HAS BEEN ABLE TO COMMUNICATE IN FULL SENTENCES AND HAVE SHORT APPROPRIATE CONVERSATIONS WITH STAFF. PT CONTINUES TO RESPOND TO INTERNAL STIMULI, CONTINUES TO VOICE PARANOID DELUSIONS. PT HAS SHOWN A SIGNIFICANT IMPROVEMENT IN ABILITY TO CONTROL BEHAVIOR THROUGHOUT THE DAY, HE IS CURRENTLY SITTING IN GROUP PARTICIPATING IN [employer] GAME APPROPRIATELY. PT SHOWERED AND SHAVED THIS SHIFT. NO DISTRESS NOTED. Q15 MIN MONITORING CONTINUES, REFER TO [facility] FLOWSHEET FOR SPECIFIC MONITORING.
--- NOTE | 2017-06-17 15:29 | NUR ---
FLAKO Patient was in attendence during group as well as participated.Patient was confused on playing and rambled incoherently at times. Patient also enjoyed the bubbles. Patient maintained safe behavoirs throughout group
--- NOTE | 2017-06-17 18:56 | NUR ---
SHIFT CHART CHECK COMPLETED.
[2017-06-17 20:34] VITALS: BP 122/75
--- NOTE | 2017-06-17 21:30 | NUR ---
PT ESCALLATING RAPIDLY UNABLE TO REDIRECT, SCREAMING, CURSING. UNABLE TO REDIRECT SCREAMING AT THIS NURSE "I NEED MY MEDS GIVE ME MY FUCKING MEDICINE". PT ASKED IF HE WANTS MEDICATION TO HELP HIM CALM DOWN PT YELLED "YES I WANT MY FUCKING MEDICINE, I NEED SOMETHING NOW". PO VALIUM 10 MG ADMINISTERED.
--- NOTE | 2017-06-17 22:00 | NUR ---
PT MUCH EASIER TO REIDRECT, 1-1 PROVIDED PT CONTINUES WITH FLIGHT OF IDEAS BUT ABLE TO STATE " I THINK PEOPLE ARE MAKING FUN OF ME, I KNOW I'M SICK RIGHT NOW". PT REASSURED FOR SAFETY. PROVIDED ADDITIONAL HS SNACK OF HALF SANDWICH AND ORANGE JUICE. PT CONTINUES TO HAVE CONVERSATIONS WITH UNSEEN OTHERS AND MOOD LABILITY.
--- NOTE | 2017-06-18 04:32 | NUR ---
24 HR chart check completed.
--- NOTE | 2017-06-18 05:34 | NUR ---
PT CONTINUES TO HAVE MOOD LABILITY AND IRRITABLE OUTBURSTS BUT GREATLY IMPROVED FROM PREVIOUS SHIFTS. AWAKE FROM 3 AM TILL 5 AM PACING HALLS, FOOD AND FLUIDS PROVIDED. DISTRACTED BY THROWING INFLATABLE BALL WITH STAFF, PROVIDED 1-1 AND EMOTIONAL SUPPORT PROVIDED REGARDING UP COMING COURT HEARING. ABLE TO MAKE NEEDS KNOWN AT TIMES. CONTINUE POC CONTINUE Q 15 MIN CHCKS FOR SAFETY.
[2017-06-18 06:29] LABS: HEMOGLOBIN 11.9 g/dl (14.0-18.0); MEAN CELL VOLUME 96.3 fl (80.0-94.0); MEAN CORPUSCULAR HGB 33.7 pg (27.0-31.0); MEAN PLATELET VOLUME 9.1 fl (9.6-12.3); PLATELET COUNT AUTOMATED 188 10*3/uL (130-400); RED BLOOD COUNT 3.53 10*6/uL (4.50-5.90); RED CELL DISTRI WIDTH 12.2 % (0-14.5); WHITE BLOOD COUNT 11.5 10*3/uL (4.8-10.8)
[2017-06-18 06:55] LABS: PLATELET SUFFICIENCY NORMAL (NORMAL); TOTAL CELLS COUNTED 100 #CELLS
[2017-06-18 08:16] VITALS: BP 118/64
--- NOTE | 2017-06-18 11:25 | NUR ---
Goals, remenissing and would you rather Patient attended group at the end of session. Patient able to answer one question with garbeled speech. Patient agressive and yelling prior to group. Nursing aware and dealing with patient. Once in group patient was quiet and sat with nursing students. Patient did not voice any SI while in group.
--- NOTE | 2017-06-18 15:53 | NUR ---
Giuseppe has exhibited mood lability throughout the day. He alternates between periods of depression with verbal agitation and thrashing about yelling loudly. Markedly psychotic voicing numerous delusions, paranoid in nature and is not receptive to reality presentation @ this time. Medicated with valium 10 mg po @ 0813 and 1337 for increased agitation and anxiety after 1:1 interaction failed to calm him. Valium is effective in decreasing his anxiousness and agitation. Energy level alternates between high, moderate and low. @ times gait is noted to be unsteady, requiring staff's intervention to utilize the wheelchair for safety. He is receptive with encouragement. Though he did not make any suicidal or homicidal statements, @ the onset of this shift he was noted using racial slurs while expressing delusions. Giuseppe is compliant with medications. Bryan Corbin in to see him today. Refer to [facility] flowsheet for specific monitoring. Experiencing sensory disturbances (auditory in nature) and is noted to talk to himself frequently. Limited insight due to current mental status.
[2017-06-18 20:00] VITALS: BP 127/75
--- NOTE | 2017-06-18 23:25 | NUR ---
PT YELLING PACING ROOM, STATING PEOPLE ARE SPITTING ON HIM. HAD PLACED UNDERGARMENTS IN TOILET AND ROLLED UP WET PANTS IN DRAWER. VIVIBLE UPSET ANGRY STATING "SOMEONE STOLE MY CLOTHES". 1-1 PROVIDED AND PRESENTATION OF REALITY. SLIGHT DEESCALLATION IN IRRITABILITY OF MOOD. PT ASKING STAFF "WHEN AM I GOING TO GET MY MEDICINE, I NEED HELP". PT ASKED IF HE WOULD LIKE ORAL VALIUM TO HELP CALM HIM PT REPLIED " YES I NEED MY MEDICINE." PRN VALIUM ADMINISTERED.
--- NOTE | 2017-06-19 01:00 | NUR ---
PT SLEEPING AT THIS TIME PRN VALIUM EFFECTIVE
--- NOTE | 2017-06-19 05:33 | NUR ---
24 HR chart check completed.
--- NOTE | 2017-06-19 06:51 | NUR ---
PT SLEPT 7 HOURS WITH FEW INTURRUPTIONS. DECREASE IN PRESSURED SPEECH ABLE TO MAKE SOME NEEDS KNOWN, WITH BRIEF PERIODS OF AGITATION. 1-1 PROVIDED PT CONTINUES DELUSIONAL THOUGHT PROCESS WITH FLIGHT OF IDEAS BUT IMPROVING DAILY. CONTINUE TO OBSERVE FOR S/S OF ADVERSE DRUG REACTIONS AND PROVIDED 1-1, REDIRECTION NEEDED.
[2017-06-19 07:39] VITALS: BP 124/61
--- NOTE | 2017-06-19 14:43 | NUR ---
Giuseppe is compliant with prescribed medications. Mood lability continues with sporadic episodes of verbal agitation (loud voice tone) noted throughout the day. Speech @ times is pressured, responses @ times are irrelevant to topic of discussion, however, @ other times he is able to converse appropriately with staff. Anxiety level alternates between moderate to high and @ times of increased anxiousness, delusions that are paranoid in nature are expressed. He was medicated with valium 10 mg po @ 0751 and 1225 after 1:1 interaction failed to decrease his anxiousness. Valium is moderately effective, but short lived. He is not receptive to reality orientation when this is presented. No thoughts of suicide or homicide expressed during time spent with staff. He does require some limit setting as he tends to be intrusive @ times. He denies experiencing any hallucinations when questioned. Noted to mumble to self @ times. Refer to [facility] flowsheet for specific monitoring.
[2017-06-19 20:12] VITALS: BP 130/71
--- NOTE | 2017-06-20 01:30 | NUR ---
24 HR chart check completed.
--- NOTE | 2017-06-20 07:17 | NUR ---
PT SLEPT 8 HOURS WITH ONLY ONE INTURRUPTION OF BIZZAR BEHAVIOR DANCING IN ROOM WITH BATH BLANKET STATING " DON'T HARRASS ME I'M BATMAN!!!!". NO PRN REQUIRED THIS SHIFT MUCH MORE EASILY REDIRECTED. SPEECH CONTINUES TO BE PRESSURED BUT DECREASING IN SPEED. ABLE TO MAKE NEEDS KNOWN AND ABILITY TO CONVERSE WITH STAFF. AWOKE PLESANT AND COOPERATIVE REQUESTING MEDS. EDUCATION PROVIDED REGARDING CLOZARIL, VERBALIZED UNDERSTANDING AND ALSO VERBALIZED UNDERSTANDING OF ILLNESS AND NEED. CONTINUE POC
[2017-06-20 08:12] VITALS: BP 115/72
--- NOTE | 2017-06-20 08:40 | NUR ---
TREATMENT TEAM WAS HELD WITH THE FOLLOWING: DR. DOUGLASS, RNs, AT, SWs. PT INFORMED DR. DOUGLASS THIS AM BEFORE HEARING THAT HE WAS WILLING TO SIGN IN FOR TREATMENT. PT SIGNED IN WITH SW. DR. DOUGLASS WANTS TO LOOK AT ALTERNATE PLACEMENT.
--- NOTE | 2017-06-20 11:02 | NUR ---
DR CARDOZA ON UNIT TO SEE PATIENT.
--- NOTE | 2017-06-20 11:29 | NUR ---
Goal/Exercise/I am greatful for.... Patient was in attendence for group and activily participated. Patient able to appropriately state what he was greatful for. Patient stated he was greatful to be able to sign in here voluntarily and to everyone here because they talk to him. Patient maintained safe behaviors and expressed no suicidal ideations during group.
--- NOTE | 2017-06-20 15:31 | NUR ---
Jeopardy coping skills, anger management and therapy/feelings group Patient attended group with appropriate participation and converstation. Patient able to answer all questions without redirection and minimal difficulty. Patient requires word finding cues at times however remained appropriate in all answer. Patient able to stay calm and try to difuse a situation when a peer because upset with him for " interupting." Patient reports no SI throughout treatment and remained happy and plesant.
--- NOTE | 2017-06-20 16:45 | NUR ---
PATIENT IS ALERT TO PERSON, ABLE TO VOICE NEEDS. RESPIRATIONS ARE EASY, NON-LABORED ON ROOM AIR. ONE OUTBURST NOTED THIS MORNING WITH REDIRECTION EFFECTIVE. PATIENT DENIES ANY HALLUCINATIONS, DELUSION, HI/SI OR PAIN. MOOD IS BECOMING MORE STABLE, INTERACTIVE WITH STAFF AND PARTICIPATING IN GROUP SESSIONS. INDEPENDANT WITH ACTIVITIES OF DAILY LIVING, CONTINENT OF BOWEL AND BLADDER. MEAL INTAKES ARE GOOD WITH ADEQUATE FLUIDS. MEDICATION COMPLAINT WITH EDUCATIONS PROVIDED. PATIENT ASKING ABOUT MEDICATIONS AND WHEN THEY ARE DUE, KEEPING TRACK OF DAILY MEDICATION AND MED CHANGES. THOUGHT PROCESS IS BECOMING ORGANIZED. Q 15 MINUTE SAFETY CHECKS MAINTIANED. CONTINUE TO MONITOR FOR INCREASED BEHAVIORS AND REDIRECT NEEDED.
[2017-06-20 19:57] VITALS: BP 133/74
--- NOTE | 2017-06-20 22:01 | NUR ---
24 HR chart check completed.
--- NOTE | 2017-06-21 04:38 | NUR ---
GREATLY IMPROVED MOOD LABILITY THAN ON PREVIOUS DAYS, IMPROVING PRESSURED SPEECH. PT RECEPTIVE TO MED EDUCATION AND VERBALIZED UNDERSTANDING. DURING 1-1 PT VOICED FRUSTRATION WITH HORIZION MCC AND WOULD LIKE TO LOOK INTO OTHER AFFORDABLE OPTIONS TO HIM STATING THAT HE HAS A PAYEE AND A BUDGET THAT HE CAN WORK WITH. PT GIVEN TIME TO EXPRESS FRUSTRATIONS, PROVIDED WITH EMOTIONAL SUPPORT. REINFORCED POSITIVE COPING SKILLS, REDIRECTION NEEDED AT TIMES WITH BIZARE BEHAVIOR, CONTINUAL DAILY IMPROVEMENT NOTED. PT AMBULATORY AND ABLE TO MAKE NEEDS KNOWN. CONTINUE POC AND ASSESS FOR SIDE EFFECTS OF MEDICATIONS.
[2017-06-21 06:38] LABS: BASO # 0.1 10*3/uL (0.0-0.1); BASO % 0.8 % (0.0-1.0); EOS # 0.3 10*3/uL (0.0-0.4); EOS % 3.2 % (1.0-4.0); HEMATOCRIT 35.8 % (42.0-52.0); HEMOGLOBIN 12.7 g/dl (14.0-18.0); LYMPH # 2.2 10*3/uL (1.3-4.4); LYMPH % 24.7 % (27.0-41.0); MEAN CELL VOLUME 95.7 fl (80.0-94.0); MEAN CORPUSCULAR HGB CONC 35.5 g/dl (33.0-37.0); MEAN PLATELET VOLUME 8.9 fl (9.6-12.3); MONO # 0.9 10*3/uL (0.1-1.0); MONO % 10.5 % (3.0-9.0); NEUT # 5.3 10*3/uL (2.3-7.9); NEUT % 60.3 % (47.0-73.0); PLATELET COUNT AUTOMATED 210 10*3/uL (130-400); RED BLOOD COUNT 3.74 10*6/uL (4.50-5.90); RED CELL DISTRI WIDTH 12.2 % (0-14.5); WHITE BLOOD COUNT 8.8 10*3/uL (4.8-10.8)
--- NOTE | 2017-06-21 06:53 | NUR ---
PT SLEPT 8 HOURS WITH OUT INTURRUPTION. RECIEVED SHOWER
[2017-06-21 08:01] VITALS: BP 141/78
--- NOTE | 2017-06-21 10:54 | NUR ---
Darlene Cisneros CNP of hospitalist group here to see pt at this time. Assessed edema to oleg feet.
--- NOTE | 2017-06-21 11:05 | NUR ---
Goals, exercise and self esteem group Patient attended and actively participated with appropriate behavior. Patient able to state goal for today with little assistance. Patient pleasent throughout group. Patient able to discuss self esteem question and fill out " A letter to me" paper with good postive things about self. Patient reports no SI throughout treatment.
--- NOTE | 2017-06-21 15:19 | NUR ---
PT IS ALERT AND ORIENTED TO PERSON, PLACE, TIME. MEMORY APPEARS INTACT. RESPIRATIONS EASY ON ROOM AIR. MOOD STABLE THIS SHIFT, SIGNIFICANT IMPROVEMENT IN MOOD NOTED IN CONTRAST TO PREVIOUS ASSESSMENTS. PT CONTINUES TO HAVE SHORT PERIODS OF HYPOMANIC BEHAVIOR BUT HAS BEEN EASILY REDIRECTED THIS SHIFT. AFFECT IS APPROPRIATE. SPEECH IS RAPID AT TIMES, BUT COHERENT, ABLE TO MAKE NEEDS KNOWN AND CARRY ON APPROPRIATE CONVERSATION. PT MEDICATION COMPLIANT, VERBALIZES UNDERSTANDING OF MEDICATIONS AND IMPORTANCE OF COMPLIANCE. PT DENIES SI/HI. PT DENIES HALLUCINATIONS, NO RESPONSE TO INTERNAL STIMULI NOTED. NO PARANOIA/DELUSIONS NOTED THIS SHIFT. PT HAS BEEN COOPERATIVE, ENGAGING IN GROUPS AND ACTIVITIES APPROPRIATELY. PT IS AMBULATORY WITH STEADY GAIT, INDEPENDENT WITH ADLS, CONTINENT OF BOWEL AND BLADDER, GOOD APPETITE WITH ADEQUATE FLUID INTAKE NOTED. NO DISTRESS NOTED. Q15 MIN SAFETY CHECKS MAINTAINED, REFER TO [facility] FLOWSHEET FOR SPECIFIC MONITORING.
--- NOTE | 2017-06-21 15:21 | NUR ---
Social BINGO Patient did attend group as well as participated. Patient was very upbeat,very much enjoying this type of BINGO. Patient interacted appropriately with others and maintained safe behaviors while attending group. Patient also expressed no suicidal ideations
--- NOTE | 2017-06-21 18:35 | NUR ---
TREATMENT TEAM WAS HELD THIS MORNING WITH THE FOLLOWING: DR. DOUGLASS, MEDICAL STUDENT, RNs, ATs, SW. DR. DOUGLASS STATED PENDING DISCHARGE FOR TUESDAY OR TUESDAY NEXT WEEK.
[2017-06-21 19:46] VITALS: BP 133/82
--- NOTE | 2017-06-22 04:03 | NUR ---
24 HOUR CHART CHECK COMPLETED.
--- NOTE | 2017-06-22 05:38 | NUR ---
PATIENT OBSERVED ON Q 15 MIN CHECKS TO HAVE SLEPT >7 WITH NO AWAKENINGS. MOOD STABLE, AFFECT APPROPRIATE. ABLE TO MAKE NEEDS KNOWN WITH APPROPRIATE CONVERSATIONS THIS SHIFT. DENIES SI/HI, NO NOTED RESPONDING TO INTERNAL STIMULI.NO PARANOID/DELUSIONS NOTED THIS SHIFT. COOPERATIVE AND INTERACTIVE WITH STAFF AND PEERS. REQUESTS MEDICATION DURING MED PASS TIMES. MEDICATION COMPLIANT WITHOUT DIFFICULTY AFTER REVIEW. AMBULATORY WITH STEADY GAIT. NO PHYSICAL COMPLAINTS VOICED. PATIENT CURRENTLY IN BED WITH EYES CLOSED, RESPIRATIONS EASY AND REGULAR, NO SIGNS OR SYMPTOMS OF DISTRESS NOTED. REFER TO [facility] FLOWSHEET FOR SPECIFIC MONITORING.
[2017-06-22 07:41] VITALS: BP 133/81
[2017-06-22 08:16] LABS: BUN 15 mg/dl (7-24); CHLORIDE 103 mmol/L (98-107); SODIUM 138 mmol/L (136-145)
--- NOTE | 2017-06-22 10:24 | NUR ---
NORBERTO MIMSNP ON UNIT TO ASSESS PT.
--- NOTE | 2017-06-22 11:08 | NUR ---
Goals, exercise and trivia Patient attended and actively particpated in group. Patient able to state appropriate goal and engage in converstation with peers in group. Patient reports no SI throughout group.
--- NOTE | 2017-06-22 11:16 | NUR ---
Spoke with Clement Wagoner, Element Burner at [facility]. Mr. Wagoner states that he does not need to come down and assess him, if he is ready for d/c, then he can come back at any point in time. Dr. Jain looking at d/c for 06/[address] Jain asked that send out referrals for other group [facility] so that pt. can be put on a waiting list. Referral faxed to [facility] to be put on waiting list.
--- NOTE | 2017-06-22 12:29 | NUR ---
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 psychosis. It is reported that pt. began having several admits to the hospital about two years ago and there is thought that there may also be an organic basis to pt's psychosis. Just to keep this mind per Gordon gould.
--- NOTE | 2017-06-22 12:40 | NUR ---
PT ALERT TO PERSON AND PLACE. PT MED COMPLIANT WITHOUT DIFFICUTLY, MED EDUCATION PROVIDED. PT MOOD IS STABLE. PT CALM, INTERACTING WITH STAFF AND PEERS. PT GOAL DIRECTED TOWARDS DISCHARGE, VOICING DESIRE TO GO [facility]HWERE [facility]ES [facility]. ADVISED PT THAT HE MAY HAVE TO RETURN THERE UNTIL DIFFERENT PLACEMENT IS FOUND. NO HALLUCIANTIONS OR DELUSIONS NOTED. PT DENIES ANY HOMICIDAL/SUICIDAL THOUGHTS. PT AMBULATORY THROUGHOUT UNIT, GAIT STEADY. PT CONTINENT OF BOWEL AND BLADDER. PT SHOWERED THIS SHIFT. PLAN IS TO ENCOURAGE PT TO VOICE ANY HALLUCIANTIONS OR DELUSIONS, PRESENT REALITY WITH EACH INTERACTION AND NEEDED, ENCOURAGE PT TO VOICE ANY SUICIDAL/HOMICIDAL THOUGHTS, CONTRACT FOR SAFTEY IF SUCH THOUGHTS ARISE.
--- NOTE | 2017-06-22 14:00 | NUR ---
Gordon Wolfe, from [facility] in [facility] state that he will assess the pt. for Guardianship services once pt. is d/c'ed from hospital and back at [facility].
--- NOTE | 2017-06-22 15:16 | NUR ---
Positive Traits:I am a Star... Patient did attend group as well as participated. Patient has a positive attitude about himself as well as an outlook ahead. Patient reported no suicidal or homicidal ideations and maintained safe behaviors while in group
--- NOTE | 2017-06-22 16:27 | NUR ---
Spoke with pt. about d/c plans. pt. ok with returning to [facility] until pt. can go to another [facility] home, he requested Mallory, a referral was made earlier today. SW will also put in an application with pt. tomorrow for [facility] housing per pt's request to get his own apt. with his own money. pt states he gets $735.00 a month.
[2017-06-22 19:42] VITALS: BP 127/80
--- NOTE | 2017-06-22 20:15 | NUR ---
HANDLED SELF WELL WHEN ANOTHER PEER TRIED TO CONFRONT HIM AND ARGUE. SLIGHT AGGITATION BUT NO OUTBURST OR AGGRESSION
--- NOTE | 2017-06-22 20:40 | NUR ---
MILK OF MAG GIVEN FOR C/O CONSTIPATION
--- NOTE | 2017-06-23 01:02 | NUR ---
PATIENTS TREATMENT PLAN [employer]; P-1 PSYCHOSIS WITH SUICIDAL IDEATIONS I- NEW COPING SKILLS, MEDICATION COMPLIANCE P- NO OUTBURSTS, NO SUICIDAL THOUGHTS OR ACTIONS, MEDICATION COMPLIANCE CLIENT HAS SUCCESSFULLY COMPLETED TREATMENT PLAN.
--- NOTE | 2017-06-23 05:01 | NUR ---
24 HR chart check completed.
--- NOTE | 2017-06-23 06:18 | NUR ---
CLIENT STATES MOM GIVEN EARLIER WAS EFFECTIVE
--- NOTE | 2017-06-23 06:20 | NUR ---
SLEPT WELL PAST 2215PM
[2017-06-23 07:56] VITALS: BP 125/76
--- NOTE | 2017-06-23 11:02 | NUR ---
PT ALERT TO PERSON AND PLACE. PT MED COMPLIANT, MED EDUCATION PROVIDED. PT MOOD IS STABLE. PT PLEASANT AND COOPERATIVE, INTERACTING WITH STAFF AND PEERS. PT GOAL DIRECTED TOWARDS DISCHARGE. NO HALLUCINATIONS OR DELUSIONS NTOED. PT DENIES ANY HOMICIDAL/SUICIDAL THOUGHTS. PT AMBULAOTRY THROUGHOUT UNIT, GAIT STEADY. PT CONTINENT OF BOWEL AND BLADDER. PT TREATMENT PLAN [employer] SUICIDLA IDEATIONS AND HOMICIDAL IDEATIONS. TREATMENT PLAN HAS BEEN RESOLVED. PT DISCHARGE IN PROCESS FOR TOMORROW.
--- NOTE | 2017-06-23 11:28 | NUR ---
SW met with pt. in regards to gathering info. for subsidized housing. pt. able to give financial "picture" but lacks the understanding that he qualifies for RSS and may not qualify for an apt. on his own. pt. states, "I can go to another [place] [facility] if that's what I can do". SW let him know that he will be returning to [facility] and a referral was made to [facility]. ilene to be put on the waiting list. pt. states "I can wait". SW let him know that he will be d/c'ed tomorrow and she will let him know what time when it is set up. pt. seemed to understand that he will need to return to [facility] until an opening at [facility]. pt. states "I have been and out of hospitals since i was 19, I can wait".
--- NOTE | 2017-06-23 11:53 | NUR ---
Goal,Exercise and Trivia Patient was in attendence for group as well as Participated. Patient was very eager to attend group requesting a milieu tell me not to start group without him due to him finishing up his shower. Patient also requested Trivia for the group this morning. Patient was very upbeat,laughing and joking during group. Patient maintained safe behaviors and voiced no suicidal ideations while in group
--- NOTE | 2017-06-23 13:02 | NUR ---
SW left vm for Rich Hung CM in regards to pt. being d/c tomorrow and the need for pcp information. Spoke with razia Wagoner at [facility] to let him know about pt. d/c tomorrow and asked if he knew pt. pcp, he did not and re-directed SW to ask Beverley Darnell, the CM, which SW did leave a vm. Set up appt. at [facility], Dr. Jasso, psychiatrist for 06/27/17 at 1pm.
--- NOTE | 2017-06-23 13:11 | NUR ---
SW cannot set up a transport/discharge time yet due to pt. having [facility] ins. The SW must call the day of d/c to schedule for a pickup per their procedure.
--- NOTE | 2017-06-23 16:06 | NUR ---
CRISTY spoke with priyank Leblanc Cm from [facility] for pt. Priyank asking about d/c time, let him know pt. is [facility] and wally need to call first thing in [facility]. Priyank also spoke with Nurse Peralta in regards to pharmacy for scripts to be called in.
[2017-06-23 20:18] VITALS: BP 113/72
--- NOTE | 2017-06-24 01:04 | NUR ---
PT ALERT AND ORIENTED TO PERSON AND PLACE. NO SI/HI NOTED. PT REMAINS STABLE AND ORGANIZED. INTERACTIVE WITH STAFF AND PEERS. NO HALLUCINATIONS OR DELUSIONS NOTED. RESPIRATIONS EASY AND NON LABORED. Q15 MINUTE SAFETY CHECKS MAINTAINED. MEDICATION COMPLIANT WITHOUT DIFFICULTY. PT HAD A GOOD TELEPHONE CALL WITH HIS BROTHER, OBDULIO. PT TALKING ABOUT GOING HOME TOMORROW AND WAS WORRIED ABOUT HIS MEDICATIONS. REASSURED PT HIS PRESCRIPTIONS WILL BE SENT OVER TO THE FACILITY. PT AMBULATING HALLWAY WITH STEADY GAIT AND AFTER MEDICATION ADMINISTRATION PT RETIRED TO BED. MEDICATION EDUCATION PROVIDED. NO ADVERSE MOODS OR BEHAVIORS NOTED. PT CALM AND COOPERATIVE. SEE [facility] FLOWSHEET FOR SPECIFIC MONITORING.
--- NOTE | 2017-06-24 03:02 | NUR ---
24 HR chart check completed.
--- NOTE | 2017-06-24 06:49 | NUR ---
PT SLEPT APPROXIMATELY 7 HOURS THIS SHIFT.
[2017-06-24] MEDS ORDERED: TRAZODONE150 MG PO (08:41)
[2017-06-24] MEDS ORDERED: CLOZAPINE25 MG PO (08:41)
[2017-06-24] MEDS ORDERED: CLOZAPINE100 MG PO (08:41)
[2017-06-24 08:54] VITALS: BP 118/76
--- NOTE | 2017-06-24 08:57 | NUR ---
06/23/17 Afternoon: Coping with various feelings/emoji face suncatchers Patient was in attendence for group and actively participated.Patient very upbeat and funny. Patient maintained safe behaviors and voiced no suicidal ideations while in group
--- NOTE | 2017-06-24 08:59 | NUR ---
SW to call [facility] this am once the doctors and the d/c paperwork is all completed due to [facility] arranging transport and sometiems the ride is here within a few minutes to hours later. The Unit does not have any control over what time the transport shows up.
[2017-06-24] MEDS ORDERED: FUROSEMIDE20 M1 PO (09:03)
--- NOTE | 2017-06-24 09:45 | NUR ---
NORBERTO VIDAL CNP OF [facility] HERE TO SEE PT AT THIS TIME, MADE AWARE OF DISCHARGE FOR TODAY.
--- NOTE | 2017-06-24 09:46 | NUR ---
PT IS ALERT AND ORIENTED TO PERSON, PLACE, TIME AND SITUATION. MEMORY APPEARS INTACT. RESPIRATIONS EASY ON ROOM AIR. MOOD IS STABLE, AFFECT IS APPROPRIATE. SPEECH IS WNL AND COHERENT. ABLE TO MAKE NEEDS KNOWN WITHOUT DIFFICULTY. PT DENIES HALLUCINATIONS, NO RESPONSE TO INTERNAL STIMULI NOTED. PT DENIES SI/HI. NO PARANOIA/DELUSIONS NOTED. PT IS CALM AND COOPERATIVE, INTERACTIVE WITH STAFF AND PEERS. PARTICIPATING IN GROUPS AND ACTIVITIES. PT IS MED COMPLIANT, VERBALIZES UNDERSTANDING OF MEDICATIONS AND NECESSARY FOLLOW UP CARE AND BLOOD WORK D/T CLOZARIL. SCRIPT FOR BLOODWORK OBTAINED FROM DR. DOUGLASS FOR PT FOR POST DISCHARGE. PT IS AMBULATORY WITH STEADY GAIT, INDEPENDENT WITH ADLS, CONTINENT OF BOWEL AND BLADDER, GOOD APPETITE WITH ADEQUATE FLUID INTAKE. NO DISTRESS NOTED. Q15 MIN SAFETY CHECKS MAINTAINED, REFER TO [facility] FLOWSHEET FOR SPECIFIC MONITORING.
--- NOTE | 2017-06-24 11:32 | NUR ---
Goals/Exercise/Reminiscing Patient did attend group as well as actively participated. Patient choose a very good goal of "Try to ajust to living at [facility]." Patient is being discharged today and actively using his coping skills,Positive thoughts and the other skills he has adapted while being here. Patient maintained safe behaviors and reported no homicidal ideations.
--- NOTE | 2017-06-24 11:56 | NUR ---
PHONE CALL MADE TO ENROLL PT IN [facility] PROGRAM. JACINTA AT [facility] INFORMED WELL PT'S NURSE.
--- NOTE | 2017-06-24 15:50 | NUR ---
PT DISCHARGED VIA [facility] BACK TO [facility] AT THIS TIME. ALL DISCHARGE INSTRUCTIONS WERE REVIEWED WITH THE PT PRIOR TO DISCHARGE WITH PT'S STATED UNDERSTANDING. ALL MEDICATIONS WERE ESCRIBED TO PT'S PHARMACY, REGISTRATION FOR [facility] COMPLETED THROUGH PHARMACY AND CASE MANAGEMENT PRIOR TO DISCHARGE, JACINTA, PHARMACIST AT [facility], STATES HE WILL HAVE PT'S MEDICATIONS DELIVERED TO [facility] APPROX 530PM. PT MADE AWARE. ALL PERSONAL BELONGINGS WERE SENT WITH THE PT INCLUDING LOCK BOX ITEMS. PT LEFT THE UNIT IN STABLE CONDITION.
--- NOTE | 2017-06-24 15:50 | NUR ---
REPORT GIVEN TO NURSE AT [facility], MADE AWARE PT HAD 4PM MEDS AND DOES NOT NEED ANY MEDICATIONS UNTIL 8PM. VERBALIZED UNDERSTANDING. MADE AWARE PT'S PHARMACY, [facility] WILL BE DELIVERING MEDS APPROX 530PM. MED LIST FAXED TO [facility] PER REQUEST.
== END 2017-06-24 15:50 | DRG 885 ==
LOC: 3N 02:56
PROVIDERS: Internal Medicine; Registered Nurse; ADMIT Psychiatry & Neurology Psychiatry
DX: F25.9 Schizoaffective disorder, unspecified (principal); F23 Brief psychotic disorder; B35.1 Tinea unguium; F17.200 Nicotine dependence, unspecified, uncomplicated; E66.9 Obesity, unspecified; E78.5 Hyperlipidemia, unspecified; F41.0 Panic disorder [episodic paroxysmal anxiety]; I10 Essential (primary) hypertension; R60.0 Localized edema; M20.40 Other hammer toe(s) (acquired), unspecified foot; Z83.3 Family history of diabetes mellitus; Z82.49 Family history of ischemic heart disease and other diseases of the circulatory system; Z88.8 Allergy status to other drugs, medicaments and biological substances; Z79.899 Other long term (current) drug therapy; Z68.30 Body mass index [BMI] 30.0-30.9, adult